=== PATIENT | female | born 1960 | race Caucasian/White ===

== ENCOUNTER 2023-08-21 06:45 | Day surgery (SDC) | payer MEDICAID, MEDICARE ==
[~2023-08-21 06:45] MED LIST: Sodium Chloride 0.9% 10 ML Syringe FLUSH PRN; Sodium Chloride 0.9% 10 ML Syringe FLUSH SCH
[2023-08-21] MEDS: Lactated Ringers 1,000 ML IV SCH (07:15)
[2023-08-21] MEDS: oxyCODONE ER 10 MG TAB.ER PO ONE (07:33)
[2023-08-21] MEDS: Acetaminophen 325 MG Tab PO ONE (07:33)
[2023-08-21] MEDS: Pregabalin 25 MG Cap PO ONE (07:34)
[2023-08-21] MEDS ORDERED: ceFAZolin 2 GM Vial ONE (07:55)
[2023-08-21] MEDS ORDERED: Propofol 200 MG/20 ML SDV ONE ×3 (07:55→10:01)
[2023-08-21] MEDS ORDERED: fentaNYL 100 MCG/2 ML SDV ONE (07:56)
[2023-08-21] MEDS ORDERED: Midazolam 1 MG/ML 2 ML SDV ONE (07:56)
[2023-08-21] MEDS: Morphine 8 MG, EPINEPHrine 0.3 MG, Cefuroxime 750 MG, Ketorolac 30 MG, Sodium Chloride ... PRN (08:20)
[2023-08-21] MEDS: Vancomycin 1 GM SDV ONE (08:20)
[2023-08-21] MEDS: Tranexamic Acid 1,000 MG/10 ML Vial ONE (08:20)
[2023-08-21] MEDS ORDERED: EPINEPHrine 1 MG/ML SDV ONE (08:23)
[2023-08-21] MEDS ORDERED: Ropivacaine 0.5% 5 MG/ML 30 ML SDV ONE (08:23)
[2023-08-21] MEDS ORDERED: dexmedeTOMIDine HCl 200 MCG/2 ML SDV ONE (08:49)
[2023-08-21] MEDS ORDERED: Dexamethasone 4 MG/ML 5 ML MDV ONE (08:51)
[2023-08-21] MEDS ORDERED: Lidocaine 1% PF 2 ML SDV ONE (09:00)
[2023-08-21] MEDS ORDERED: Ondansetron 4 MG/2 ML SDV ONE (09:15)
[2023-08-21] MEDS ORDERED: ePHEDrine 50 MG/ML SDV ONE (09:16)
[2023-08-21] MEDS ORDERED: Phenylephrine 1% 10 MG/ML SDV ONE (09:28)
[2023-08-21] MEDS ORDERED: Lactated Ringers 1,000 ML ONE (09:40)
[2023-08-21] MEDS: oxyCODONE 5 MG Tab PO SCH (13:58)
== END 2023-08-21 15:00 | disposition home or self-care (01) ==
LOC: JD.SDS 06:45
PROVIDERS: ATTEND Orthopaedic Surgery
DX: M17.12 Unilateral primary osteoarthritis, left knee (principal); I10 Essential (primary) hypertension; E11.40 Type 2 diabetes mellitus with diabetic neuropathy, unspecified; C64.9 Malignant neoplasm of unspecified kidney, except renal pelvis; F17.210 Nicotine dependence, cigarettes, uncomplicated; Z79.899 Other long term (current) drug therapy
CPT/HCPCS: 01402; 64447; 73560-26-LT; 73560-LT; 82947; 97116-GP; 97161-GP; A9270-GY; C1713; C1776; J0171; J0690; J0697; J1100; J1885; J2250; J2270; J2371; J2405; J2704; J2795; J3010; J3370; J3490; J7030; J7120

== ENCOUNTER → 2024-01-10 | Day surgery (SDC) | payer MEDICAID, MEDICARE ==
[~2024-01-10] MED LIST changes: +HYDROmorphone 0.5 MG/0.5 ML Syringe IVPUSH PRN; +Midazolam 1 MG/ML 2 ML SDV ONE; +Ondansetron 4 MG/2 ML SDV IVPUSH PRN; +Phenylephrine 1% 10 MG/ML SDV ONE; +Propofol 200 MG/20 ML SDV ONE; -Sodium Chloride 0.9% 10 ML Syringe FLUSH PRN; -Sodium Chloride 0.9% 10 ML Syringe FLUSH SCH; +ceFAZolin 2 GM Vial ONE; +dexmedeTOMIDine HCl 200 MCG/2 ML SDV ONE; +fentaNYL 100 MCG/2 ML SDV IVPUSH PRN; +fentaNYL 100 MCG/2 ML SDV ONE
[2024-01-10] MEDS: Lactated Ringers 1,000 ML IV SCH (09:55)
[2024-01-10] MEDS: Albuterol/Ipratropium 3.0-0.5 MG/3 ML Neb Soln NEB PRN (10:25)
[2024-01-10] MEDS: Lidocaine 1% 10 ML MDV ONE (11:00)
[2024-01-10] MEDS: Bupivacaine 0.25% 10 ML SDV ONE (11:00)
== END | disposition home or self-care (01) ==
LOC: JD.SDS 09:18
PROVIDERS: ATTEND Orthopaedic Surgery
DX: E11.622 Type 2 diabetes mellitus with other skin ulcer (principal); L97.829 Non-pressure chronic ulcer of other part of left lower leg with unspecified severity; I10 Essential (primary) hypertension; F17.210 Nicotine dependence, cigarettes, uncomplicated; Z79.899 Other long term (current) drug therapy
CPT/HCPCS: 11042; J0665; J0690; J2250; J2371; J2704; J3010; J3490; J7120; 00400; J7620-GY